=== PATIENT | female | born 1985 | race Caucasian/White ===

== ENCOUNTER 2017-04-23 20:20 | Emergency (ER) | payer OTHER | END 2017-04-23 21:13 | disposition home or self-care (01) | LOC: ER 20:20 | DX: S46.911A Strain of unspecified muscle, fascia and tendon at shoulder and upper arm level, right arm, initial encounter (principal); J45.909 Unspecified asthma, uncomplicated; K21.9 Gastro-esophageal reflux disease without esophagitis; F17.210 Nicotine dependence, cigarettes, uncomplicated; Z90.49 Acquired absence of other specified parts of digestive tract; Z88.1 Allergy status to other antibiotic agents; X50.0XXA Overexertion from strenuous movement or load, initial encounter ==

== ENCOUNTER 2017-04-25 17:03 | Emergency (ER) | payer OTHER | END 2017-04-25 19:49 | disposition home or self-care (01) | LOC: ER 17:03 | DX: K29.70 Gastritis, unspecified, without bleeding (principal); F15.10 Other stimulant abuse, uncomplicated; J45.909 Unspecified asthma, uncomplicated; K21.9 Gastro-esophageal reflux disease without esophagitis; F17.210 Nicotine dependence, cigarettes, uncomplicated; Z90.49 Acquired absence of other specified parts of digestive tract; Z88.1 Allergy status to other antibiotic agents; Z88.5 Allergy status to narcotic agent | CPT/HCPCS: 36415; 80307; 96361; 96374; 96375 ==

== ENCOUNTER 2017-05-16 14:52 | Emergency (ER) | payer OTHER | END 2017-05-16 16:00 | disposition home or self-care (01) | LOC: ER 14:52 | DX: S86.912A Strain of unspecified muscle(s) and tendon(s) at lower leg level, left leg, initial encounter (principal); S80.811A Abrasion, right lower leg, initial encounter; S50.312A Abrasion of left elbow, initial encounter; S30.810A Abrasion of lower back and pelvis, initial encounter; J45.909 Unspecified asthma, uncomplicated; F17.210 Nicotine dependence, cigarettes, uncomplicated; Z90.49 Acquired absence of other specified parts of digestive tract; Z88.1 Allergy status to other antibiotic agents; Z88.5 Allergy status to narcotic agent; V84.9XXA Unspecified occupant of special agricultural vehicle injured in nontraffic accident, initial encounter; Y92.69 Other specified industrial and construction area as the place of occurrence of the external cause; Y99.0 Civilian activity done for income or pay ==